=== PATIENT | male | born 1955 | race Two or more races ===

== ENCOUNTER 2022-08-16 09:45 | Outpatient (CLI) | payer MEDICARE ==
[2022-08-16] MEDS ORDERED: LIDOCAINE SOLN 4% 50 ML BOTTLE ONE (10:13)
== END 2022-08-16 23:59 | disposition home or self-care (01) ==
LOC: WOU 09:45
PROVIDERS: ATTEND Podiatrist Foot & Ankle Surgery
DX: E11.621 Type 2 diabetes mellitus with foot ulcer (principal); L97.512 Non-pressure chronic ulcer of other part of right foot with fat layer exposed; M79.671 Pain in right foot; F17.200 Nicotine dependence, unspecified, uncomplicated; I10 Essential (primary) hypertension; Z79.4 Long term (current) use of insulin; Z79.85 Long-term (current) use of injectable non-insulin antidiabetic drugs; Z79.84 Long term (current) use of oral hypoglycemic drugs
CPT/HCPCS: 11042; 73630-TC

== ENCOUNTER 2022-08-19 09:36 | Outpatient (CLI) | payer MEDICARE ==
[2022-08-19] MEDS ORDERED: LIDOCAINE HCL/MPF 1% 30 ML VIAL IJ ONE (09:49)
== END 2022-08-19 23:59 | disposition home or self-care (01) ==
LOC: EDBD → WOU 09:36
PROVIDERS: ATTEND Podiatrist Foot & Ankle Surgery
DX: L84 Corns and callosities (principal); M79.671 Pain in right foot; F17.200 Nicotine dependence, unspecified, uncomplicated; M21.612 Bunion of left foot; E11.9 Type 2 diabetes mellitus without complications; Z79.4 Long term (current) use of insulin; Z79.85 Long-term (current) use of injectable non-insulin antidiabetic drugs; Z79.84 Long term (current) use of oral hypoglycemic drugs
CPT/HCPCS: 73630; G0463; J3490

== ENCOUNTER 2022-09-23 09:43 | Outpatient (CLI) | payer MEDICARE | END 2022-09-23 23:59 | disposition home health service (06) | LOC: WOU 09:43 | PROVIDERS: ATTEND Podiatrist Foot & Ankle Surgery | DX: E11.621 Type 2 diabetes mellitus with foot ulcer (principal); L97.512 Non-pressure chronic ulcer of other part of right foot with fat layer exposed; F17.210 Nicotine dependence, cigarettes, uncomplicated; M79.671 Pain in right foot; L84 Corns and callosities; Z79.4 Long term (current) use of insulin; Z79.85 Long-term (current) use of injectable non-insulin antidiabetic drugs; Z79.84 Long term (current) use of oral hypoglycemic drugs | CPT/HCPCS: 11042 ==